=== PATIENT | male | born 1940 | race Caucasian/White ===

== ENCOUNTER 2021-04-12 19:12 | Inpatient (IN) | payer MEDICARE, BC ==
[2021-04-12 19:57] LABS: #Basophils 0.1 thou/uL (0.0-0.2); #Eosinphils 0.1 thou/uL (0.0-0.7); #Lymphocytes 1.5 thou/uL (1.20-3.40); #Monocytes 1.1 thou/uL (0.11-0.59); #Neutrophils 7.5 thou/uL (1.40-6.50); %Basophils 0.8 % (0.0-1.0); %Eosinophils 1.2 % (0.0-10.0); %Lymphocytes 14.1 % (21.0-51.0); %Monocytes 10.4 % (0.0-10.0); %Neutrophils 73.4 % (42.0-75.0); Hemoglobin 14.8 g/dL (14.0-18.0); Mean Corpuscular Hemoglobin 30.8 pg (27.0-31.0); Mean Corpuscular Volume 93.3 fL (78.0-98.0); Mean Platelet Volume 8.3 fL (7.4-10.4); Platelet Count 188 thou/uL (130-400); RBC Distribution Width 11.9 % (11.5-14.5); White Blood Cell (WBC) Count 10.3 thou/uL (4.8-10.8)
[2021-04-12] MEDS ORDERED: Lorazepam 2 MG/ML VIAL ONE (20:07)
[2021-04-12] MEDS ORDERED: Haloperidol Lactate 5 MG/ML VIAL ONE ×2 (20:08→21:57)
[2021-04-12 20:23] LABS: ALT (SGPT) 13 U/L (8-55); AST (SGOT) 15 U/L (5-34); Alkaline Phosphatase 61 U/L (40-110); Anion Gap 12 mmol/L (10-20); BUN (Urea Nitrogen) 21 mg/dL (8.4-25.7); Bilirubin, Total 0.9 mg/dL (0.2-1.2); Calc. Creatinine Clearance 0 mL/min (70-130); Calcium 9.6 mg/dL (7.8-10.44); Carbon Dioxide 26 mmol/L (23-31); Chloride 102 mmol/L (98-107); Globulin 2.7 g/dL (2.4-3.5); Glucose 191 mg/dL (83-110); Magnesium 1.7 mg/dL (1.6-2.6); Protein, Total 6.7 g/dL (5.8-8.1); Sodium 136 mmol/L (136-145)
[2021-04-12] MEDS ORDERED: Lorazepam 2 MG/ML VIAL SLOW IVP PRN ×2 (21:55→21:57)
[2021-04-12 23:15] LABS: Bilirubin Negative (Negative); Blood, Urine Negative (Negative); Clarity Clear (Clear); Glucose, Urine (Dipstick) 500 mg/dL (Negative); Ketone, Urine 10 mg/dL (Negative); Leukocyte Negative Leu/uL (Negative); Nitrite Negative (Negative); Protein, Urine (Dipstick) 10 mg/dL (Neg-Trace); Specific Gravity, Urine 1.049 (1.002-1.036); Urobilinogen Normal mg/dL (Less than 2)
[2021-04-13] MEDS ORDERED: Lorazepam 2 MG/ML VIAL ONE (01:48)
[2021-04-13] MEDS ORDERED: Ondansetron PF 4 MG/2 ML Vial IVP PRN (03:30)
[2021-04-13] MEDS ORDERED: Dextrose 50% Abboject 50 ML SYRINGE SLOW IVP PRN (03:30)
[2021-04-13] MEDS ORDERED: Ondansetron ODT 4 MG TAB PO PRN (03:30)
[2021-04-13] MEDS ORDERED: Dextrose 5% in Water 1,000 ML IV PRN (03:30)
[2021-04-13 04:32] LABS: #Eosinphils 0.1 thou/uL (0.0-0.7); #Lymphocytes 1.4 thou/uL (1.20-3.40); #Monocytes 1.2 thou/uL (0.11-0.59); #Neutrophils 7.2 thou/uL (1.40-6.50); %Basophils 0.3 % (0.0-1.0); %Eosinophils 1.2 % (0.0-10.0); %Lymphocytes 14.4 % (21.0-51.0); %Monocytes 12.1 % (0.0-10.0); Hemoglobin 14.7 g/dL (14.0-18.0); Mean Corpuscular HGB CONC 32.8 g/dL (32.0-36.0); Mean Corpuscular Hemoglobin 30.7 pg (27.0-31.0); Mean Corpuscular Volume 93.5 fL (78.0-98.0); Mean Platelet Volume 8.4 fL (7.4-10.4); Platelet Count 185 thou/uL (130-400); RBC Distribution Width 11.8 % (11.5-14.5); Red Blood Cell (RBC) Count 4.77 mill/uL (4.70-6.10)
[2021-04-13 04:45] LABS: Anion Gap 16 mmol/L (10-20); BUN (Urea Nitrogen) 22 mg/dL (8.4-25.7); Calc. Creatinine Clearance 0 mL/min (70-130); Calcium 9.8 mg/dL (7.8-10.44); Carbon Dioxide 23 mmol/L (23-31); Chloride 105 mmol/L (98-107); Glucose 176 mg/dL (83-110); Potassium 5.6 mmol/L (3.5-5.1); Sodium 138 mmol/L (136-145)
[2021-04-13 04:51] LABS: Troponin I 0.058 ng/mL (< 0.028)
[2021-04-13 05:47] LABS: Amphetamine Not Detected (NotDetected); Barbiturates Screen Not Detected (NotDetected); Benzodiazepine Screen Detected (NotDetected); Cocaine Metabolite Screen Not Detected (NotDetected); Methadone Not Detected (NotDetected); Methamphetamine Not Detected (NotDetected); Opiate Screen Not Detected (NotDetected); Oxycodone Screen Not Detected (NotDetected); Phencyclidine (PCP) Not Detected (NotDetected); THC/Cannabinoid Screen Not Detected (NotDetected); Tricyclic Screen Not Detected (NotDetected)
[2021-04-13] MEDS ORDERED: Magnesium 2 GM/50 ML 2 GM in Premix Bag 1 BAG IVPB SCH (07:15)
[2021-04-13 07:55] LABS: Potassium 4.3 mmol/L (3.5-5.1)
[2021-04-13] MEDS ORDERED: Carvedilol 6.25 MG TAB PO SCH (08:00)
[2021-04-13 08:07] LABS: Troponin I 0.053 ng/mL (< 0.028)
[2021-04-13 08:13] VITALS: BMI 30.2
[2021-04-13] MEDS ORDERED: Magnesium 2 GM/50 ML BAG (IN WATER) ONE (08:27)
[2021-04-13] MEDS ORDERED: Aspirin 81 mg Enteric Coated Tablet ONE (08:27)
[2021-04-13] MEDS ORDERED: Clopidogrel Bisulfate 75 MG TAB ONE (08:29)
[2021-04-13] MEDS: Clopidogrel Bisulfate 75 MG TAB PO SCH (08:44)
[2021-04-13] MEDS: Aspirin 81 mg Enteric Coated Tablet PO SCH (08:44)
[2021-04-13] MEDS ORDERED: Acetaminophen 325 MG TAB PO PRN (09:57)
[2021-04-13] MEDS: Tamsulosin HCl 0.4 MG CAP PO SCH (15:00)
[2021-04-13] MEDS: Carvedilol 6.25 MG TAB PO SCH (17:03)
[2021-04-13] MEDS ORDERED: Apixaban 5 MG TAB PO SCH (21:00)
[2021-04-13] MEDS: Atorvastatin Calcium 40 MG TAB PO SCH (21:00)
[2021-04-13] MEDS: HumaLOG 300 UNITS/3 ML VIAL SC PRN (21:00)
[2021-04-13 21:21] LABS: Bilirubin Negative (Negative); Blood, Urine Trace (Negative); Glucose, Urine (Dipstick) Negative (Negative); Ketone, Urine Trace mg/dL (Negative); Leukocyte Negative (Negative); Nitrite Negative (Negative); Protein, Urine (Dipstick) Negative (Neg-Trace); Specific Gravity, Urine 1.015 (1.005-1.030); Urobilinogen 0.2 mg/dL (Less than 2); pH, Urine 5.5 (5.0-9.0)
[2021-04-13 21:23] LABS: Clarity Clear (Clear)
[2021-04-13 21:28] LABS: Bacteria/HPF 1+ HPF (None Seen); RBC/HPF 0-3 HPF (0-3); Squamous Epithelial 0-3 HPF (0-3); WBC/HPF 0-3 HPF (0-3)
[2021-04-13 21:29] LABS: Urine Culture Reflex Yes Yes
[2021-04-14] MEDS: HumaLOG 300 UNITS/3 ML VIAL SC PRN ×3 (05:59→20:50)
[2021-04-14 07:11] LABS: #Eosinphils 0.2 thou/uL (0.0-0.7); #Lymphocytes 1.4 thou/uL (1.20-3.40); #Monocytes 1.1 thou/uL (0.11-0.59); #Neutrophils 5.5 thou/uL (1.40-6.50); %Basophils 0.6 % (0.0-1.0); %Eosinophils 2.1 % (0.0-10.0); %Lymphocytes 16.7 % (21.0-51.0); %Neutrophils 67.6 % (42.0-75.0); Hemoglobin 14.8 g/dL (14.0-18.0); Mean Corpuscular HGB CONC 33.1 g/dL (32.0-36.0); Mean Corpuscular Hemoglobin 31.3 pg (27.0-31.0); Mean Corpuscular Volume 94.7 fL (78.0-98.0); Mean Platelet Volume 8.5 fL (7.4-10.4); Platelet Count 181 thou/uL (130-400); RBC Distribution Width 11.8 % (11.5-14.5); Red Blood Cell (RBC) Count 4.73 mill/uL (4.70-6.10); White Blood Cell (WBC) Count 8.1 thou/uL (4.8-10.8)
[2021-04-14 07:34] LABS: Anion Gap 13 mmol/L (10-20); BUN (Urea Nitrogen) 19 mg/dL (8.4-25.7); Calc. Creatinine Clearance 93 mL/min (70-130); Calcium 9.2 mg/dL (7.8-10.44); Carbon Dioxide 24 mmol/L (23-31); Chloride 104 mmol/L (98-107); Glucose 198 mg/dL (83-110); Potassium 4.6 mmol/L (3.5-5.1); Sodium 136 mmol/L (136-145)
[2021-04-14] MEDS: Aspirin 81 mg Enteric Coated Tablet PO SCH (09:42)
[2021-04-14] MEDS: Tamsulosin HCl 0.4 MG CAP PO SCH (09:42)
[2021-04-14] MEDS: Carvedilol 6.25 MG TAB PO SCH ×2 (09:42→17:21)
[2021-04-14] MEDS: Clopidogrel Bisulfate 75 MG TAB PO SCH (09:43)
[2021-04-14 20:03] LABS: SARS-CoV-2 PCR by NAA Not Detected (NotDetected)
[2021-04-14] MEDS: Atorvastatin Calcium 40 MG TAB PO SCH (20:50)
[2021-04-15 05:24] LABS: #Basophils 0.1 thou/uL (0.0-0.2); #Eosinphils 0.2 thou/uL (0.0-0.7); #Lymphocytes 1.4 thou/uL (1.20-3.40); #Monocytes 1.1 thou/uL (0.11-0.59); #Neutrophils 5.5 thou/uL (1.40-6.50); %Basophils 0.6 % (0.0-1.0); %Lymphocytes 17.4 % (21.0-51.0); %Monocytes 13.1 % (0.0-10.0); %Neutrophils 66.9 % (42.0-75.0); Hemoglobin 14.5 g/dL (14.0-18.0); Mean Corpuscular HGB CONC 31.9 g/dL (32.0-36.0); Mean Corpuscular Hemoglobin 30.1 pg (27.0-31.0); Mean Corpuscular Volume 94.4 fL (78.0-98.0); Mean Platelet Volume 8.8 fL (7.4-10.4); Platelet Count 185 thou/uL (130-400); RBC Distribution Width 11.8 % (11.5-14.5); Red Blood Cell (RBC) Count 4.82 mill/uL (4.70-6.10); White Blood Cell (WBC) Count 8.2 thou/uL (4.8-10.8)
[2021-04-15 05:45] LABS: Anion Gap 15 mmol/L (10-20); BUN (Urea Nitrogen) 19 mg/dL (8.4-25.7); Calc. Creatinine Clearance 88 mL/min (70-130); Carbon Dioxide 20 mmol/L (23-31); Chloride 105 mmol/L (98-107); Potassium 4.3 mmol/L (3.5-5.1); Sodium 136 mmol/L (136-145)
[2021-04-15 05:46] LABS: Calcium 9.5 mg/dL (7.8-10.44); Glucose 212 mg/dL (83-110)
[2021-04-15] MEDS: HumaLOG 300 UNITS/3 ML VIAL SC PRN (06:18)
[2021-04-15] MEDS ORDERED: cefTRIAXone\\ROCEPHIN 1 GM in Sodium Chloride 0.9% 100 ML IVPB SCH (08:00)
[2021-04-15 10:31] VITALS: TEMP 98.1
[2021-04-15] MEDS: Clopidogrel Bisulfate 75 MG TAB PO SCH ×2 (10:32→10:33)
[2021-04-15] MEDS: Tamsulosin HCl 0.4 MG CAP PO SCH (10:33)
[2021-04-15] MEDS: Polyethylene Glycol 3350 17 GM Packet PO SCH ×2 (10:34→10:49)
[2021-04-15] MEDS: Aspirin 81 mg Enteric Coated Tablet PO SCH (10:34)
[2021-04-15] MEDS: Carvedilol 6.25 MG TAB PO SCH (10:39)
[2021-04-15 10:42] VITALS: BP 172/83
== END 2021-04-15 13:30 | disposition home or self-care (01) | DRG 93 ==
LOC: ERS 19:12 → ERHOLD 21:09 → OBSVTOIN 04-13 12:21 → 2NO 04-13 17:15
PROVIDERS: ADMIT Student in an Organized Health Care Education/Training Program; ATTEND Internal Medicine
DX: G92.8 Other toxic encephalopathy (principal); T42.75XA Adverse effect of unspecified antiepileptic and sedative-hypnotic drugs, initial encounter; Z20.822 Contact with and (suspected) exposure to COVID-19; I25.10 Atherosclerotic heart disease of native coronary artery without angina pectoris; E87.5 Hyperkalemia; I10 Essential (primary) hypertension; E11.9 Type 2 diabetes mellitus without complications; F41.9 Anxiety disorder, unspecified; I48.91 Unspecified atrial fibrillation; E78.5 Hyperlipidemia, unspecified; E83.42 Hypomagnesemia; N40.0 Benign prostatic hyperplasia without lower urinary tract symptoms; Z88.2 Allergy status to sulfonamides; Z88.5 Allergy status to narcotic agent; Z87.891 Personal history of nicotine dependence; Z79.84 Long term (current) use of oral hypoglycemic drugs; Z79.82 Long term (current) use of aspirin; Z79.899 Other long term (current) drug therapy
CPT/HCPCS: 36415; 36416; 70450; 71045; 80048; 80053; 80306; 81001; 81003; 82140; 83735; 84443; 84484; 85025; 87086; 93005; 96374; G0378; J0696; J1630; J1815; J2060; J3475; J3490; U0003; U0005

== ENCOUNTER 2024-05-11 17:46 | Inpatient (IN) | payer MEDICARE ==
[~2024-05-11 17:46] MED LIST: Iopamidol-370 76% 500 ML MDV (1 ML CHARGE) ONE
[2024-05-11] MEDS ORDERED: Haloperidol Lactate 5 MG/ML VIAL ONE (18:54)
[2024-05-11] MEDS ORDERED: Sterile Water 10 ML ONE (19:11)
[2024-05-11] MEDS ORDERED: Ziprasidone 20 MG VIAL ONE (19:11)
[2024-05-11 20:24] LABS: Bacteria/HPF None Seen HPF (None Seen); Bilirubin Negative (Negative); Blood, Urine 2+ (Negative); CAUTI Indications for Culture Alt mental st,lethar; Clarity Clear (Clear); Glucose, Urine (Dipstick) Greater than 1000 mg/dL (Negative); Ketone, Urine Trace mg/dL (Negative); Leukocyte Negative Leu/uL (Negative); Nitrite Negative (Negative); Protein, Urine (Dipstick) Negative (Neg-Trace); Specific Gravity, Urine 1.027 (1.002-1.036); Squamous Epithelial None Seen HPF (0-3); Urobilinogen Normal mg/dL (Less than 2); pH, Urine 5.5 (5.0-9.0)
[2024-05-11 20:31] LABS: #Basophils 0.06 10x3/uL (0.0-0.2); #Eosinophils Less than 0.03 10x3/uL (0.0-0.7); %Basophils 0.4 % (0.0-1.0); %Eosinophils 0.1 % (0.0-10.0); %Lymphocytes 4.8 % (21.0-51.0); %Monocytes 8.1 % (0.0-10.0); %Neutrophils 86.2 % (42.0-75.0); Hematocrit 41.9 % (42.0-52.0); Mean Corpuscular HGB CONC 33.4 g/dL (32.0-36.0); Mean Corpuscular Hemoglobin 29.2 pg (27.0-31.0); Mean Corpuscular Volume 87.5 fL (78.0-98.0); Mean Platelet Volume 11.4 fL (7.4-10.4); Platelet Count 196 10x3/uL (130-400); RBC Distribution Width 13.2 % (11.5-14.5); Red Blood Cell (RBC) Count 4.79 mill/uL (4.70-6.10)
[2024-05-11 20:32] LABS: Urine Culture Reflex No No
[2024-05-11 20:57] LABS: Troponin I 0.028 ng/mL (< 0.028)
[2024-05-11 21:00] LABS: ALT (SGPT) 23 U/L (Less than 45); AST (SGOT) 22 U/L (11-34); Albumin 3.8 g/dL (3.1-4.5); Alkaline Phosphatase 83 U/L (40-110); Anion Gap 17 mmol/L (10-20); BUN (Urea Nitrogen) 43 mg/dL (8.4-25.7); Calc. Creatinine Clearance 0 mL/min (70-130); Calcium 9.7 mg/dL (7.8-10.44); Carbon Dioxide 20 mmol/L (23-31); Chloride 102 mmol/L (98-107); Estimated GFR 43; Glucose 406 mg/dL (83-110); Magnesium 2.4 mg/dL (1.6-2.6); Potassium 4.4 mmol/L (3.5-5.1); Protein, Total 6.8 g/dL (5.8-8.1); Sodium 135 mmol/L (136-145)
[2024-05-11 21:10] LABS: INR-International Normal Ratio 1.1; Prothrombin Time 14.1 sec (12.0-14.7)
[2024-05-12] MEDS ORDERED: Ondansetron PF 4 MG/2 ML Vial IVP PRN (00:11)
[2024-05-12] MEDS ORDERED: Ondansetron ODT 4 MG TAB PO PRN (00:11)
[2024-05-12] MEDS ORDERED: Acetaminophen 650 MG Suppository PR PRN ×2 (00:11→01:18)
[2024-05-12] MEDS ORDERED: Calcium Carbonate 500 MG ChewTAB PO PRN (00:11)
[2024-05-12] MEDS ORDERED: Acetaminophen 325 MG TAB PO PRN ×2 (00:11→01:18)
[2024-05-12] MEDS ORDERED: Glucagon 1 MG/ML KIT IM PRN (00:13)
[2024-05-12] MEDS ORDERED: Dextrose 5% in Water 1,000 ML IV PRN (00:13)
[2024-05-12] MEDS ORDERED: Dextrose 50% Abboject 50 ML SYRINGE SLOW IVP PRN (00:13)
[2024-05-12 00:34] VITALS: BMI 26.8
[2024-05-12] MEDS: Lactated Ringer's 1,000 ML IV SCH (00:40)
[2024-05-12 06:30] LABS: #Basophils 0.07 10x3/uL (0.0-0.2); #Eosinophils Less than 0.03 10x3/uL (0.0-0.7); %Basophils 0.4 % (0.0-1.0); %Eosinophils 0.1 % (0.0-10.0); %Lymphocytes 5.5 % (21.0-51.0); %Monocytes 8.2 % (0.0-10.0); %Neutrophils 85.3 % (42.0-75.0); Hematocrit 45.5 % (42.0-52.0); Hemoglobin 15.2 g/dL (14.0-18.0); Mean Corpuscular HGB CONC 33.4 g/dL (32.0-36.0); Mean Corpuscular Hemoglobin 29.7 pg (27.0-31.0); Mean Corpuscular Volume 88.9 fL (78.0-98.0); Mean Platelet Volume 11.6 fL (7.4-10.4); Platelet Count 185 10x3/uL (130-400); RBC Distribution Width 13.5 % (11.5-14.5); Red Blood Cell (RBC) Count 5.12 mill/uL (4.70-6.10)
[2024-05-12 06:44] LABS: Anion Gap 18 mmol/L (10-20); BUN (Urea Nitrogen) 38 mg/dL (8.4-25.7); Calc. Creatinine Clearance 46 mL/min (70-130); Carbon Dioxide 19 mmol/L (23-31); Chloride 106 mmol/L (98-107); Estimated GFR 44; Glucose 291 mg/dL (83-110); Potassium 4.5 mmol/L (3.5-5.1); Sodium 138 mmol/L (136-145)
[2024-05-12] MEDS ORDERED: FLU (Fluad Triv) TS24-25 (65UP)/MF59C/PF 45 MCG/0.5 ML Syringe IM ONE (09:00)
[2024-05-12] MEDS: Famotidine 20 MG TAB PO SCH (09:53)
[2024-05-12] MEDS: Famotidine/PF 20 mg/2ml Vial SLOW IVP SCH (09:53)
[2024-05-12 18:13] LABS: Influenza A by NAA Not Detected (NotDetected); Influenza B by NAA Not Detected (NotDetected); RSV by NAA Not Detected (NotDetected); SARS-CoV-2 NAA Rapid Test Not Detected (NotDetected)
[2024-05-12] MEDS: Carvedilol 6.25 MG TAB PO SCH (19:47)
[2024-05-12] MEDS: Glimepiride 4 MG TAB PO SCH (19:48)
[2024-05-12] MEDS: Atorvastatin Calcium 40 MG TAB PO SCH (20:46)
[2024-05-12] MEDS: QUEtiapine 25 MG TAB PO SCH (20:46)
[2024-05-12] MEDS: Heparin 5,000 UNITS/ML VIAL SC SCH (20:51)
[2024-05-13] MEDS: Haloperidol Lactate 5 MG/ML VIAL IM SCH (03:05)
[2024-05-13] MEDS: Furosemide 40 MG TAB PO SCH (09:29)
[2024-05-13] MEDS: Clopidogrel Bisulfate 75 MG TAB PO SCH (09:29)
[2024-05-13] MEDS: Glimepiride 4 MG TAB PO SCH (09:29)
[2024-05-13] MEDS: Tamsulosin HCl 0.4 MG CAP PO SCH (09:30)
[2024-05-13 11:40] LABS: Anion Gap 13 mmol/L (10-20); BUN (Urea Nitrogen) 23 mg/dL (8.4-25.7); Calc. Creatinine Clearance 79 mL/min (70-130); Calcium 9.4 mg/dL (7.8-10.44); Carbon Dioxide 21 mmol/L (23-31); Chloride 109 mmol/L (98-107); Estimated GFR 83; Glucose 179 mg/dL (83-110); Potassium 4.3 mmol/L (3.5-5.1); Sodium 139 mmol/L (136-145)
[2024-05-13] MEDS: Finasteride 5 MG TAB PO SCH (12:57)
[2024-05-13] MEDS: Haloperidol 1 MG TAB PO SCH (14:42)
[2024-05-13] MEDS: Insulin Regular, Human 100 UNIT/ML 10 ML VIAL SC PRN ×2 (17:37→21:06)
[2024-05-14 06:34] LABS: %Basophils 0.8 % (0.0-1.0); %Eosinophils 5.1 % (0.0-10.0); %Lymphocytes 16.4 % (21.0-51.0); %Monocytes 10.6 % (0.0-10.0); %Neutrophils 66.5 % (42.0-75.0); Hematocrit 43.1 % (42.0-52.0); Hemoglobin 14.6 g/dL (14.0-18.0); Mean Corpuscular HGB CONC 33.9 g/dL (32.0-36.0); Mean Corpuscular Hemoglobin 29.7 pg (27.0-31.0); Mean Corpuscular Volume 87.8 fL (78.0-98.0); Mean Platelet Volume 11.7 fL (7.4-10.4); Platelet Count 179 10x3/uL (130-400); RBC Distribution Width 13.5 % (11.5-14.5); Red Blood Cell (RBC) Count 4.91 mill/uL (4.70-6.10)
[2024-05-14 07:04] LABS: Anion Gap 15 mmol/L (10-20); BUN (Urea Nitrogen) 26 mg/dL (8.4-25.7); Calc. Creatinine Clearance 72 mL/min (70-130); Calcium 9.5 mg/dL (7.8-10.44); Carbon Dioxide 22 mmol/L (23-31); Chloride 106 mmol/L (98-107); Estimated GFR 74; Glucose 114 mg/dL (83-110); Magnesium 2.1 mg/dL (1.6-2.6); Potassium 3.8 mmol/L (3.5-5.1); Sodium 139 mmol/L (136-145)
[2024-05-14] MEDS: Finasteride 5 MG TAB PO SCH (08:23)
[2024-05-14 12:14] VITALS: BP 136/76; TEMP 97.9
== END 2024-05-14 12:37 | DRG 682 ==
LOC: ERS 17:46 → T4-A 22:27
PROVIDERS: ADMIT Student in an Organized Health Care Education/Training Program; ATTEND Hospitalist
DX: N17.9 Acute kidney failure, unspecified (principal); G92.8 Other toxic encephalopathy; N13.8 Other obstructive and reflux uropathy; E11.65 Type 2 diabetes mellitus with hyperglycemia; Z66 Do not resuscitate; Z88.5 Allergy status to narcotic agent; Z88.2 Allergy status to sulfonamides; F03.90 Unspecified dementia, unspecified severity, without behavioral disturbance, psychotic disturbance, mood disturbance, and anxiety; E78.5 Hyperlipidemia, unspecified
CPT/HCPCS: 0241U; 36415; 36416; 51701; 70450; 71045; 74177; 80048; 80053; 81001; 82010; 82550; 83036; 83735; 84443; 84484; 85025; 85610; 85730; 87040; 93005; 96360; 96361; 96372; J1630; J1644; J3486; J3490; J7120; Q9967